=== PATIENT | male | born 1955 | race Caucasian/White ===

== ENCOUNTER 2023-02-02 08:51 | Outpatient (CLI) | payer MEDICARE, BC, SELFPAY | END 2023-02-02 08:52 | disposition home or self-care (01) | PROVIDERS: PCP Family Medicine; Visit Provider Family Medicine | DX: E78.5 Hyperlipidemia, unspecified (principal); F41.9 Anxiety disorder, unspecified; Z12.5 Encounter for screening for malignant neoplasm of prostate | CPT/HCPCS: 80048; 80061; 84153; 84460 ==

== ENCOUNTER 2023-05-26 18:24 | Emergency (ER) | payer MEDICARE, BC, SELFPAY ==
[2023-05-26 18:37] VITALS: BP 156/85; PULSE 82; RESP 18; TEMP 36.5; O2SAT 96; BMI 31.6
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
[2023-05-26 20:02] VITALS: PULSE 76; RESP 18; TEMP 36.8
== END 2023-05-26 20:03 | disposition home or self-care (01) ==
LOC: ED 19:52
PROVIDERS: Emergency Provider Family Medicine; PCP Family Medicine
DX: T24.202A Burn of second degree of unspecified site of left lower limb, except ankle and foot, initial encounter (principal); T24.201A Burn of second degree of unspecified site of right lower limb, except ankle and foot, initial encounter; X08.8XXA Exposure to other specified smoke, fire and flames, initial encounter
CPT/HCPCS: 99282; 99283

== ENCOUNTER 2024-02-15 12:02 | Outpatient (CLI) | payer MEDICARE, BC, SELFPAY | END 2024-02-15 12:03 | disposition home or self-care (01) | PROVIDERS: PCP Family Medicine; Visit Provider Family Medicine | DX: E78.2 Mixed hyperlipidemia (principal); Z12.5 Encounter for screening for malignant neoplasm of prostate | CPT/HCPCS: 80048; 80061; 84460; G0103 ==